=== PATIENT | female | born 1940 | race Caucasian/White ===

== ENCOUNTER → 2020-03-11 08:02 | Outpatient (CLI) | payer OTHER, SELFPAY | PROVIDERS: Family Provider Family Medicine; PCP Family Medicine; Referring Provider Family Medicine; Visit Provider Family Medicine | DX: I60.7 Nontraumatic subarachnoid hemorrhage from unspecified intracranial artery (principal); Z53.8 Procedure and treatment not carried out for other reasons ==

== ENCOUNTER → 2020-03-29 09:44 | Outpatient (CLI) | payer OTHER, SELFPAY ==
--- NOTE | 2020-03-29 | DI.MRI.S_ITS ---
PROCEDURE: MR ANGIO HEAD WO CON INDICATIONS: CEREBRAL ANE TECHNIQUE: Noncontrast axial 3-D [id number] MR angiogram, with 3-dimensional maximum intensity projection (MIP) reformats of the internal carotid arteries and posterior circulation then performed. COMPARISON: [facility], CT, HEAD WITHOUT CONTRAST, 04/12/2016, 8:44. FINDINGS: Image quality: Excellent. Anterior circulation: Intracranial internal carotid arteries demonstrate normal size and intraluminal flow signal. The flow within the paired anterior cerebral arteries is normal and symmetric. The flow within the middle cerebral arteries is normal and symmetric. The anterior communicating artery is seen. 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 Posterior circulation: Visualized portions of the vertebral arteries demonstrate normal caliber, and join to form a normal appearing basilar artery. The flow within the posterior cerebral arteries is normal and symmetric. No stenoses, occlusions, or aneurysms. 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 Dictated by: Clay Blankenship M.D. on 03/29/2020 at 11:20 Approved by: Clay Blankenship M.D. on 03/29/2020 at 11:28
== END ==
PROVIDERS: Family Provider Family Medicine; PCP Family Medicine; Referring Provider Physician Assistant; Visit Provider Physician Assistant
DX: I67.1 Cerebral aneurysm, nonruptured (principal)
CPT/HCPCS: 70544

== ENCOUNTER 2021-02-12 10:19 | Emergency (ER) | payer OTHER, SELFPAY ==
[2021-02-12 10:27] VITALS: BP 163/71; PULSE 62; O2SAT 98
[2021-02-12 10:30] VITALS: PULSE 60; O2SAT 99
[2021-02-12 10:40] VITALS: BP 163/71; PULSE 57; RESP 20; TEMP 36.5; O2SAT 98; BMI 28.7
[2021-02-12 10:46] LABS: Add Manual Diff / Slide Review NO; Basophils Absolute Auto 0 /uL (0-100); Basophils Percent Auto 0.6 % (0-2); Eosinophils Absolute Auto 0 /uL (0-450); Eosinophils Percent Auto 0.6 % (2-4); Hemoglobin 13.7 g/dL (12.0-16.0); Lymphocytes Absolute Auto 1700 /uL (1100-4500); Lymphocytes Percent Auto 26.1 % (25-40); Mean Corpuscular HGB Conc 33.4 % (30-36); Mean Corpuscular Hemoglobin 29.4 PG (26-34); Mean Corpuscular Volume 87.9 fL (80-100); Monocytes Absolute Auto 500 /uL (0-900); Monocytes Percent Auto 7.2 % (3-14); Neutrophils Absolute Auto 4300 /uL (1500-7000); Neutrophils Percent Auto 65.5 % (50-75); Platelet Count 230 X10^3/uL (150-400); Red Blood Cell Count 4.66 X10^6/uL (4.0-5.2); Red Cell Distribution Width 13.8 % (11.6-14.8); White Blood Cell Count 6.6 X10^3/uL (4.5-11.0)
[2021-02-12 11:00] VITALS: PULSE 55; RESP 18; O2SAT 99
[2021-02-12 11:00] LABS: Alanine Aminotransferase 22 IU/L (<35); Albumin 4.4 g/dL (3.5-5.0); Albumin Globulin Ratio 1.5 (1.0-2.8); Alkaline Phosphatase 83 U/L (38-126); Aspartate Aminotransferase 22 IU/L (14-36); BUN Creatinine Ratio 41.9 (6-22); Bilirubin Total 0.4 mg/dL (0.2-1.3); Blood Urea Nitrogen 26 mg/dL (7-17); Calcium 9.6 mg/dL (8.4-10.2); Carbon Dioxide 33 mmol/L (22-32); Chloride 104 mmol/L (98-107); Estimated Glomerular Filt Rate > 60.0 mL/min (>60); Globulin 2.9 g/dL (1.7-4.1); Glucose 106 mg/dL (80-110); HEMOLYSIS < 15 (0-50); Lipase 64 U/L (23-300); Potassium 4.3 mmol/L (3.4-5.1); Sodium 140 mmol/L (137-145); Total Protein 7.3 g/dL (6.3-8.2)
[2021-02-12 11:01] VITALS: BP 138/107; PULSE 56; O2SAT 99
--- NOTE | 2021-02-12 11:05 | ED.GENADULT ---
HPI - General Adult General Chief complaint: Abdominal Pain Stated complaint: Left side abd pain all night Time Seen by Provider: 02/12/21 10:42 Source: patient Mode of arrival: Ambulatory History of Present Illness HPI narrative: Patient is an 80-year-old female who is here for evaluation of left-sided abdominal pain. States that her symptoms started last evening. It was right before she was going to bed. Had a hard time sleeping last night because of the discomfort. No diarrhea. No constipation. No nausea vomiting. No urinary symptoms. She had a bowel movement this morning and also urinated this morning and that did not change her discomfort at all. No fevers. She does have a history of a [employer] shunt but no other abdominal procedures. No blood in her stool. Has not tried anything for symptoms prior to arrival. Related Data Allergies Allergy/AdvReac Type Severity Reaction Status Date / Time bupropion [From WELLBUTRIN] Allergy Severe ANGIOEDEMA Verified 02/12/21 10:49 Sulfa (Sulfonamide Allergy Intermediate SWELLING Verified 02/12/21 10:49 Antibiotics) [SULFA (SULFONAMIDE ANTIBIOTICS)] Review of Systems Constitutional Constitutional: Reports system reviewed and no additional complaints, except as documented Cardiovascular Cardiovascular: Reports as per HPI and Reports system reviewed and no additional complaints, except as documented Respiratory Respiratory: Reports as per HPI and Reports system reviewed and no additional complaints, except as documented Gastrointestinal Gastrointestinal: Reports as per HPI and Reports system reviewed and no additional complaints, except as documented Genitourinary Genitourinary: Reports system reviewed and no additional complaints, except as documented Musculoskeletal Musculoskeletal: Denies back pain Integumentary/Breasts Skin/Breast: Reports system reviewed and no additional complaints, except as documented Neurologic Neurologic: Reports system reviewed and no additional complaints, except as documented Hematologic/Lymphatic On Anticoagulants: No Allergic/Immunologic Allergic/Immunologic: Reports system reviewed and no additional complaints, except as documented Patient History Medical History Atypical chest pain Otitis media, left Pharyngitis Subarachnoid hemorrhage Social History Smoking Status: Never smoker Smoking Status: Never smoker alcohol intake frequency: holidays/special occasions only Substance Use Type: does not use Exam Initial Vital Signs Initial Vital Signs: Vital Signs Pulse Rate 62 02/12/21 10:27 Blood Pressure 163/71 H 10/10/21 10:27 Pulse Oximetry 98 02/12/21 10:27 Const General: cooperative, healthy appearing and comfortable HENMT Head: normal to inspection and normocephalic Resp Effort & Inspection: normal respiratory effort Auscultation: clear to auscultation bilaterally Cardio Rate: regular rate Rhythm: regular rhythm GI Inspection: normal to inspection Palpation: soft, No firm and tender (Left-sided abdomen/lower abdomen) Back/Spine/Pelvis Back: No CVA tenderness Neuro General: patient alert, patient awake, patient oriented x3 and moves all extremities Extrem General: normal to inspection and capillary refill normal Psych Appearance: grossly normal and well kempt Course Orders Ordered: ED Orders 02/12/21 10: EKG-12 Lead Stat 02/12/21 10:35 Complete Blood Count AUTO DIFF Stat Comprehensive Metabolic Panel Stat Lipase Stat 02/12/21 11:05 CT abdomen pelvis w con Stat 02/12/21 11:25 Urine Microscopic Stat Discontinued Medications Sodium Chloride (Normal Saline 0.9%) 1,000 mls @ 1,000 mls/hr IV BOLUS ONE Stop: 02/12/21 12:04 Last Admin: 02/12/21 11:28 Dose: 1,000 mls/hr Documented by: CTRMIKEL Vital Signs Vital signs: Vital Signs - 8 hr 02/12/21 10:27 02/12/21 10:30 02/12/21 10:40 Temperature 97.7 F Pulse Rate 62 60 57 L Respiratory Rate 20 Blood Pressure 163/71 H 163/71 H Pulse Oximetry 98 99 98 02/12/21 11:00 02/12/21 11:01 Temperature Pulse Rate 55 L 56 L Respiratory Rate 18 Blood Pressure 138/107 H Pulse Oximetry 99 99 Medical Decision Making Lab Data Lab results reviewed: Yes I reviewed the patient's lab results. Result diagrams: 02/12/21 10:35 02/12/21 10:35 Labs: Lab Results 02/12/21 02/12/21 02/12/21 Range/Units 10:35 10:35 11:25 WBC 6.6 (4.5-11.0) X10^3/uL RBC 4.66 (4.0-5.2) X10^6/uL Hgb 13.7 (12.0-16.0) g/dL Hct 41.0 (36-46) % MCV 87.9 (80-100) fL MCH 29.4 (26-34) PG MCHC 33.4 (30-36) % RDW 13.8 (11.6-14.8) % Plt Count 230 (150-400) X10^3/uL Neut % (Auto) 65.5 (50-75) % Lymph % (Auto) 26.1 (25-40) % [place] % (Auto) 7.2 (3-14) % Eos % (Auto) 0.6 L (2-4) % Baso % (Auto) 0.6 (0-2) % Neut # (Auto) 4300 (0117-3623) /uL Lymph # (Auto) 1700 (2990-5599) /uL [place] # (Auto) 500 (0-900) /uL Eos # (Auto) 0 (0-450) /uL Baso # (Auto) 0 (0-100) /uL Sodium 140 (137-145) mmol/L Potassium 4.3 (3.4-5.1) mmol/L Chloride 104 (98-107) mmol/L Carbon Dioxide 33 H (22-32) mmol/L BUN 26 H (7-17) mg/dL Creatinine 0.62 (0.52-1.04) mg/dL Estimated GFR > 60.0 (>60) mL/min BUN/Creatinine Ratio 41.9 H (6-22) Glucose 106 (80-110) mg/dL Calcium 9.6 (8.4-10.2) mg/dL Total Bilirubin 0.4 (0.2-1.3) mg/dL AST 22 (14-36) IU/L ALT 22 (<35) IU/L Alkaline Phosphatase 83 (38-126) U/L Total Protein 7.3 (6.3-8.2) g/dL Albumin 4.4 (3.5-5.0) g/dL Globulin 2.9 (1.7-4.1) g/dL Albumin/Globulin Ratio 1.5 (1.0-2.8) Lipase 64 (23-300) U/L Urine RBC None seen (0-5/HPF) Urine WBC 0-1/hpf (0-5/HPF) Ur Squamous Epith Cells 0-1 /hpf (0-5/HPF) Urine Bacteria None seen (None) Ur Culture Indicated? Cult not indicated Urine Dip Bedside Urine Glucose Negative Bedside Urine Bilirubin - Negative Bedside Urine Ketone - Negative Urine Specific [place] 1.010 Bedside Urine Occult Blood + Bedside Urine pH 7.0 Bedside Urine Protein - Negative Bedside Urine Urobilinogen - Negative Bedside Urine Nitrite - Negative Bedside Urine Leukocytes - Negative Esterase Point of care testing: Urine Dip Bedside Urine Glucose Negative Bedside Urine Bilirubin - Negative Bedside Urine Ketone - Negative Urine Specific [place] 1.010 Bedside Urine Occult Blood + Bedside Urine pH 7.0 Bedside Urine Protein - Negative Bedside Urine Urobilinogen - Negative Bedside Urine Nitrite - Negative Bedside Urine Leukocytes - Negative Esterase Imaging Data CT scan - abdomen/pelvis: Radiologist's Impression: [address] [id number] Scan ReportSigned Patient: Zeina Fuentes [facility]#: [id number]: 1940Acct:[id number]/Sex: 80 / FDate of Service: 02/12/21Loc: EDAccession Number: [id number] Procedure: CT abdomen pelvis w con Ordering Provider: Puma Lassiter D.O. PROCEDURE: CT ABDOMEN PELVIS W CON INDICATIONS: Left-sided abdominal pain TECHNIQUE: After the administration of intravenous contrast, axial sections acquired from the lung bases to the pubic symphysis. Coronal and sagittal reformats were performed. For radiation dose reduction, the following was used: automated exposure control, adjustment of mA and/or kV according to patient size. COMPARISON: None. FINDINGS: Image quality: Excellent. Lung bases: Unremarkable. Heart: No significant findings. ABDOMEN: Liver: Scattered calcifications within the right hepatic lobe, consistent with remote granulomatous disease. Gallbladder: Is within normal limits Biliary ducts: Unremarkable. Pancreas: Unremarkable. Spleen: Unremarkable. Adrenal Glands: No right adrenal nodules. Indeterminate left adrenal nodule measuring 18 mm with internal calcifications. Kidneys and Ureters: Bilateral renal cysts, largest of which is in the right interpolar kidney measuring 9 cm transverse. Stomach and Bowel: Stomach, small bowel loops, and colon are unremarkable. Normal appendix. Peritoneum: No abnormal intraperitoneal fluid. No free air. [employer] shunt catheter terminates within the central pelvis. Ventral Wall: No hernias. Abdominal Nodes: No retroperitoneal or mesenteric adenopathy by size criteria. Vessels: Aorta and inferior vena cava are normal in size. PELVIS: Pelvic Organs: Unremarkable. Bladder: Unremarkable. Pelvic Nodes: No enlarged lymph nodes. Miscellaneous: No hernias are seen. Bones: Unremarkable. IMPRESSION: 1. No acute process. 2. Normal appendix. Dictated by: Doug Suarez M.D. on 02/12/2021 at 12:04 Approved by: Doug Suarez M.D. on 02/12/2021 at 12:06 ECG Data Attestation: I personally reviewed and interpreted this ECG as follows: Interpretation: Sinus bradycardia Ventricular rate of 52 Left axis deviation Normal QRS Normal QTC Nonspecific ST T wave changes MDM Narrative Medical decision making narrative: Labs unremarkable, CT scan shows no acute pathology. Urine is unremarkable. No signs of any infection. No indication for surgical consultation. She has no rash over the area that would make a concern for zoster. No further workup needed in the emergency department. She was given return precautions and follow-up instructions. She expressed understanding and agreement. Discharge Plan Departure Patient Disposition: Home Clinical Impression: Abdominal pain Instructions: DI for Abdominal Pain-Adult Activity Restrictions/Additional Instructions: Your labs and CT scan are all very reassuring. Unfortunately we do not have a specific cause of your abdominal pain but it does not appear to be a surgical nor infectious cause. Recommend you contact your primary doctor for a follow-up. Return to the emergency department for any new or worsening symptoms Referrals: Annabelle Ziegler MD [Primary Care Provider] -
[2021-02-12] MEDS: SODIUM CHLORIDE 0.9% 1,000 ML 1000 ML IV (11:28)
[2021-02-12 12:03] LABS: Bacteria Urine None Seen; Culture Indicated Urine Cult Not Indicated; RBC Urine None Seen (0-5/HPF); Squamous Epithelial Cell Urine 0-1 /HPF (0-5/HPF); WBC Urine 0-1/HPF (0-5/HPF)
[2021-02-12 13:04] VITALS: BP 163/90; PULSE 48; RESP 16; O2SAT 100
== END 2021-02-12 13:05 | disposition home or self-care (01) ==
PROVIDERS: Emergency Provider Emergency Medicine; Family Provider Family Medicine; PCP Family Medicine
DX: R10.9 Unspecified abdominal pain (principal)
CPT/HCPCS: 36415; 74177; 80053; 81003; 81015; 83690; 85025; 93005; 99284; Q9967

== ENCOUNTER → 2021-10-17 12:04 | Outpatient (CLI) | payer OTHER, SELFPAY ==
--- NOTE | 2021-10-17 | DI.RAD.S_ITS ---
PROCEDURE: XR THORACIC SPINE 2V INDICATIONS: NECK PAIN TECHNIQUE: 3 views of the thoracic spine were acquired. COMPARISON: None. FINDINGS: Bones: Mild loss of height noted in the T5, T6, T7, T8, T9 and T10 vertebral body. No suspicious bony lesions. 12 pairs of ribs are noted, and appear intact where visualized. Mild convex right curvature of the thoracolumbar spine. Mild degenerative disc changes noted throughout the thoracic spine. Mild facet hypertrophy noted in the mid and lower thoracic spine. Soft tissues: No paravertebral stripe thickening. IMPRESSION: 1. Multilevel degenerative disc disease. 2. Multilevel facet arthropathy. 3. Mild loss of height in the T5-T10 vertebral bodies concerning for mild compression fractures of indeterminate age. If symptoms and/or clinical suspicion for pathology persists, evaluation with MRI should be considered for further assessment. Dictated by: Kayla Luna MD, PhD on 10/17/2021 at 16:44 Approved by: Kayla Luna MD, PhD on 10/17/2021 at 16:46
--- NOTE | 2021-10-17 | DI.RAD.S_ITS ---
PROCEDURE: XR CERVICAL SPINE 2V OR 3V INDICATIONS: NECK PAIN TECHNIQUE: 3 view(s) of the cervical spine were acquired. COMPARISON: None. FINDINGS: Bones: No fractures or dislocations to the T1 level. The lateral masses of C1 appear intact on the odontoid view. No suspicious bony lesions. Severe C5-C6 degenerative disc disease. Mild C2-C3, C3-C4, C4-C5, C6-C7 and C7-T1 degenerative disc disease. Mild facet hypertrophy noted throughout the cervical spine. Soft tissues: No prevertebral soft tissue swelling. Partially visualized [employer] shunt catheter. IMPRESSION: 1. Multilevel degenerative disc disease. 2. Multilevel facet arthropathy. 3. No fracture. No acute osseous lesion. If symptoms and/or clinical suspicion for pathology persists, evaluation with MRI should be considered for further assessment. Dictated by: Kayla Luna MD, PhD on 10/17/2021 at 16:43 Approved by: Kayla Luna MD, PhD on 10/17/2021 at 16:44
== END ==
PROVIDERS: Family Provider Family Medicine; PCP Family Medicine; Referring Provider Family Medicine; Visit Provider Family Medicine
DX: M50.31 Other cervical disc degeneration, high cervical region (principal); M47.812 Spondylosis without myelopathy or radiculopathy, cervical region
CPT/HCPCS: 72040; 72070

== ENCOUNTER → 2022-02-07 13:26 | Outpatient (CLI) | payer OTHER, SELFPAY ==
--- NOTE | 2022-02-07 13:32 | DI.CT.S_ITS ---
PROCEDURE: CT IVP A/P W/WO INDICATIONS: Hematuria, unspecified TECHNIQUE: Optional 5 mm thick noncontrast images acquired from the diaphragm to the symphysis pubis. After the administration of intravenous contrast, 5 mm thick images acquired from the diaphragm to the symphysis pubis after a 10-minute delay. 2 mm thick coronal and sagittal reformats were then performed of the kidneys and ureters. For radiation dose reduction, the following was used: automated exposure control, adjustment of mA and/or kV according to patient size. COMPARISON: [facility], CT, CT ABDOMEN PELVIS W CON, 02/12/2021, 11:43. FINDINGS: Image quality: Excellent. Lung bases: Lung bases are clear. Heart size is normal. Small hiatal hernia. Urinary system: Both kidneys are normal in size, without hydronephrosis or nephrolithiasis on pre-contrast images. No perinephric fat stranding. There is normal bilateral renal enhancement. There is a large bilobed cyst in the mid right kidney measuring 5.6 cm AP and 9.2 cm transverse. Smaller renal cortical cysts are seen bilaterally. No solid renal masses. Renal calyces appear normal in morphology when filled with contrast. Opacified portions of both ureters demonstrate normal caliber. Bladder wall thickness is normal. No calcified bladder stones. Other solid organs: Liver is normal in size and enhancement. Mild hepatic steatosis. Calcified nodules in liver and spleen are compatible with old granulomas. Spleen is normal in size. Gallbladder is normal. Biliary system is non dilated. Pancreas enhances normally. There is a 1.9 cm left adrenal nodule with CT attenuation compatible with a benign adrenal adenoma. Right adrenal is normal. 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 Bowel loops demonstrate normal wall thickness and caliber. Diverticulosis without acute diverticulitis. Normal appendix. No free fluid or air. Nodes and vessels: No retroperitoneal or mesenteric adenopathy by size criteria. Aorta and inferior vena cava are normal in size. There is [id number] atherosclerosis. Abdominal wall: No ventral hernias. Pelvis: Uterus is normal. No adnexal mass. No pathologic free pelvic fluid. No inguinal hernias or adenopathy. Bones: No suspicious bony lesions. No vertebral body compression fractures. Grade 1 anterolisthesis of L4 on L5. Possible pars defect of L4. Severe degenerative disc disease at L4-L5. IMPRESSION: 1. A cause for microhematuria is not identified on CT. 2. Multiple renal cysts. The largest cyst is seen in the mid right kidney measuring 5.6 x 9.2 cm. No solid renal masses. 3. Diverticulosis without diverticulitis. 4. A 1.9 cm left adrenal adenoma. 5. Calcified granulomas in liver and spleen. 6. 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 Dictated by: Heather Batista M.D. on 02/07/2022 at 16:27 Approved by: Heather Batista M.D. on 02/07/2022 at 16:40
[2022-02-07 14:01] LABS: BUN Creatinine Ratio 31.4 (6-22); Blood Urea Nitrogen 22 mg/dL (7-17); Calcium 9.2 mg/dL (8.4-10.2); Carbon Dioxide 35 mmol/L (22-32); Chloride 101 mmol/L (98-107); Estimated Glomerular Filt Rate > 60 mL/min (>60); Glucose 107 mg/dL (80-110); HEMOLYSIS < 15 (0-50); Potassium 3.9 mmol/L (3.4-5.1); Sodium 142 mmol/L (137-145)
== END ==
PROVIDERS: Family Provider Family Medicine; PCP Family Medicine; Referring Provider Urology; Visit Provider Urology
DX: N28.1 Cyst of kidney, acquired (principal); R31.9 Hematuria, unspecified; K57.90 Diverticulosis of intestine, part unspecified, without perforation or abscess without bleeding; D35.02 Benign neoplasm of left adrenal gland; Z95.828 Presence of other vascular implants and grafts; D73.89 Other diseases of spleen; K76.89 Other specified diseases of liver
CPT/HCPCS: 36415; 74178; 80048; Q9967

== ENCOUNTER → 2022-09-11 14:05 | Outpatient (CLI) | payer OTHER, SELFPAY | PROVIDERS: Family Provider Family Medicine; PCP Family Medicine; Visit Provider Urology | DX: R31.21 Asymptomatic microscopic hematuria (principal); R82.81 Pyuria; Z87.891 Personal history of nicotine dependence; Z98.2 Presence of cerebrospinal fluid drainage device | CPT/HCPCS: 81002; 87086; 99213 ==

== ENCOUNTER → 2022-10-10 10:54 | Outpatient (CLI) | payer OTHER, SELFPAY ==
--- NOTE | 2022-10-10 | DI.CT.S_ITS ---
PROCEDURE: CT CERVICAL SPINE WO CON INDICATIONS: Spondylosis cervical region TECHNIQUE: Noncontrast 3 mm thick sections acquired from the skull base to the T4 level. Sagittal and coronal reformats were then constructed. For radiation dose reduction, the following was used: automated exposure control, adjustment of mA and/or kV according to patient size. COMPARISON: [facility], CT, CT IVP A/P W/WO, 02/07/2022, 14:14. [facility], CR, XR CERVICAL SPINE 2V OR 3V, 10/17/2021, 12:12. FINDINGS: Image quality: Excellent. Bones: No acute fractures or dislocations. There is trace 1 mm grade 1 anterolisthesis at C2-3, C3-4, and C4-5. Multilevel disc space narrowing degenerative endplate changes are most prominent at the C5-6 disc space level. There is multilevel uncovertebral joint and facet hypertrophy. Spinal canal contents and neural foramina are better evaluated on the dedicated cervical spine MRI performed on the same day. Visualized superior ribs are intact. Mild scoliotic curvature of the included upper thoracic spine. Soft tissues: Prevertebral soft tissues are normal in thickness. No paravertebral hematomas. No apical pneumothoraces. A ventriculoperitoneal shunt catheter is partially imaged and appears intact. Subcentimeter thyroid nodules do not require dedicated imaging follow-up. IMPRESSION: No acute osseous abnormality. Moderate multilevel spondylosis. Approved by: Keshav Serrano M.D. on 10/10/2022 at 14:10
--- NOTE | 2022-10-10 11:06 | DI.MRI.S_ITS ---
PROCEDURE: MR CERVICAL SPINE WO CON INDICATIONS: Spondylosis cervical region TECHNIQUE: Noncontrast sagittal T1 spin echo and T2 fast spin echo, sagittal STIR, foraminal oblique sagittal T2 fast spin echo, and axial gradient echo or T2 fast spin echo through the cervical spine. COMPARISON: None. FINDINGS: Image quality: Excellent. Alignment and Curvature: There is mild straightening of normal cervical lordosis. Bone Marrow: Marrow demonstrates normal overall signal. Spinal Cord: Visualized spinal cord has normal size and signal. No cerebellar tonsillar herniation. Paraspinous Soft Tissues: No paravertebral masses. Prevertebral soft tissues are normal in thickness. C2-C3: Right lateral disc bulge is seen. No significant canal stenosis or neural foraminal narrowing. C3-C4: Loss of disc signal and disc height. Diffuse disc bulge and bilateral facet hypertrophic changes are noted. There is mild effacement of thecal sac anteriorly and mild left-sided neural foraminal narrowing. C4-C5: Loss of disc signal and disc height is seen. Broad-based disc bulge and bilateral facet hypertrophic changes are seen causing moderate central canal stenosis and left worse than right bilateral neural foraminal narrowing. C5-C6: There is loss of disc height and disc signal. Diffuse disc bulge and bilateral facet hypertrophic changes are seen causing moderate central canal stenosis and right worse than left bilateral neural foraminal narrowing. C6-C7: There is loss of disc height and disc signal. Mild broad-based disc bulge and bilateral facet hypertrophic changes are seen. Mild central canal stenosis and mild left-sided neural foraminal narrowing is noted. C7-T1: Normal appearance. IMPRESSION: 1. No marrow edema. No fracture or dislocation. No abnormal cervical spinal cord signal. 2. Degenerative disc disease throughout cervical spine causing various degrees of central canal stenosis and bilateral neural foraminal narrowing as described above. Dictated by: David Odell M.D. on 10/10/2022 at 12:20 Approved by: David Odell M.D. on 10/10/2022 at 12:30
== END ==
PROVIDERS: Family Provider Family Medicine; PCP Family Medicine; Referring Provider Orthopaedic Surgery Orthopaedic Surgery of the Spine; Visit Provider Orthopaedic Surgery Orthopaedic Surgery of the Spine
DX: M47.812 Spondylosis without myelopathy or radiculopathy, cervical region (principal); M50.31 Other cervical disc degeneration, high cervical region; M48.02 Spinal stenosis, cervical region
CPT/HCPCS: 72125; 72141

== ENCOUNTER → 2023-06-11 15:21 | Outpatient (CLI) | payer OTHER, SELFPAY ==
--- NOTE | 2023-06-11 15:23 | DI.US.S_ITS ---
PROCEDURE: US PERIPH VENOUS LOW EXTREM RT INDICATIONS: RIGHT LEG PAIN / RULE OUT DVT TECHNIQUE: Real-time imaging, as well as color and pulse Doppler interrogation, were performed of the lower extremity deep veins from the inguinal ligament to the popliteal fossa, with documentation of the visualized calf veins. COMPARISON: None. FINDINGS: The common femoral, femoral, popliteal, and the visualized calf veins are normally compressible, and free of intraluminal thrombus. Color and pulse Doppler demonstrate normal phasic intraluminal flow. There is normal augmentation response to distal compression maneuver. IMPRESSION: No findings of lower extremity deep venous thrombosis. Dictated by: Sophie French M.D. on 06/11/2023 at 17:24 Approved by: Sophie French M.D. on 06/11/2023 at 17:24
== END ==
PROVIDERS: Family Provider Family Medicine; PCP Family Medicine; Referring Provider Family Medicine; Visit Provider Family Medicine
DX: M79.604 Pain in right leg (principal)
CPT/HCPCS: 93971

== ENCOUNTER → 2023-11-05 14:59 | Outpatient (CLI) | payer OTHER, SELFPAY ==
--- NOTE | 2023-11-05 15:11 | DI.RAD.S_ITS ---
PROCEDURE: XR LUMBAR SPINE 2-3V INDICATIONS: SRTAIN OF RT HAMSTRING TECHNIQUE: 3 views of the lumbar spine were acquired. COMPARISON: [facility], CT, CT ABDOMEN PELVIS W CON, 02/12/2021, 11:43. FINDINGS: Bones: 5 [id number] vertebrae are present. There is grade 1 anterolisthesis measuring 0.9 cm of L4 on L5. Multilevel moderate to severe degenerative disc space narrowing. Moderate to severe foraminal narrowing is present L4-5, L5-S1. No vertebral body compression fractures. No suspicious bony lesions. Soft tissues: Overlying bowel gas pattern is normal. No suspicious soft tissue calcifications. IMPRESSION: Multilevel degenerative changes most severe at L4-5, L5-S1. Dictated by: Sophie French M.D. on 11/05/2023 at 16:28 Approved by: Sophie French M.D. on 11/05/2023 at 16:30
== END ==
PROVIDERS: Family Provider Family Medicine; PCP Family Medicine; Referring Provider Family Medicine; Visit Provider Family Medicine
DX: S76.311D Strain of muscle, fascia and tendon of the posterior muscle group at thigh level, right thigh, subsequent encounter (principal); M43.16 Spondylolisthesis, lumbar region; M48.061 Spinal stenosis, lumbar region without neurogenic claudication; M48.07 Spinal stenosis, lumbosacral region; X58.XXXD Exposure to other specified factors, subsequent encounter
CPT/HCPCS: 72100

== ENCOUNTER → 2024-01-10 15:31 | Outpatient (CLI) | payer OTHER, SELFPAY ==
--- NOTE | 2024-01-10 15:35 | DI.RAD.S_ITS ---
PROCEDURE: XR LUMBAR SPINE 2-3V INDICATIONS: Sacrococcygeal disorders, not elsewhere classified TECHNIQUE: 3 views of the lumbar spine were acquired. COMPARISON: [facility], , XR LUMBAR SPINE 2-3V, 11/05/2023, 15:12. FINDINGS: Bones: Mild dextroscoliosis of the lumbar spine, progressed from prior exam. Straightening of the lumbar spine. Grade 1 anterolisthesis of L4 on L5, unchanged from prior exam. Vertebral body heights are well-maintained. Multilevel degenerative disc disease of the lumbar spine, most pronounced and severe at L4-5, unchanged. Moderate lower lumbar facet arthropathy. Extensive atherosclerotic calcification abdominal aorta. A tube projects over the right hemiabdomen. IMPRESSION: Degenerative changes as described above. Dictated by: Skye Garcia M.D. on 01/10/2024 at 18:13 Approved by: Skye Garcia M.D. on 01/10/2024 at 18:14
== END ==
PROVIDERS: Family Provider Family Medicine; PCP Family Medicine; Referring Provider Nurse Practitioner Family; Visit Provider Nurse Practitioner Family
DX: M53.3 Sacrococcygeal disorders, not elsewhere classified (principal); W18.30XA Fall on same level, unspecified, initial encounter; M43.16 Spondylolisthesis, lumbar region; M51.36 Other intervertebral disc degeneration, lumbar region; M47.816 Spondylosis without myelopathy or radiculopathy, lumbar region; M54.50 Low back pain, unspecified
CPT/HCPCS: 72100

== ENCOUNTER → 2024-03-19 09:08 | Outpatient (CLI) | payer OTHER, SELFPAY ==
--- NOTE | 2024-03-19 09:09 | DI.ECHO.S_ITS ---
[place] [facility] : : [address] : : [place] : : [id number] : : Phone: [phone] Echocardiogram Report + + :Name: ALFREDO DUNCAN Study Date: 03/19/2024 Height: 66 in : :[facility] ReadingLocation: Weight: 171 lb : : Gender: Female BSA: 1.9 m2 : :: 1940 Age: 83 yrs BP: 136/70 mmHg: :Reason For Study: CHRONIC ISCHEMIC HEART DISEASE : :Ordering Physician: JIMENEZ, : :KERI MONTILLA Performed By: Carrie Mcbride : :Referring: CHAPITO GAONA : + + Interpretation Summary Normal left ventricle size with ejection fraction 60-65%. The left atrium is mildly dilated. The aortic valve is slightly calcified. Mild mitral annular calcification. Comparison is made with the echocardiogram of 08/19/2018, no significant change. Procedure: A two-dimensional transthoracic echocardiogram with color flow and Doppler was performed. The study quality was technically adequate. Comparison is made with the echocardiogram of 08/19/2018. The patient was in sinus bradycardia with heart rates between 45-52 bpm during the exam. Left Ventricle: The left ventricle is normal in size and wall thickness. The ejection fraction is estimated to be 60-65%. There are no other obvious focal wall motion abnormalities. Diastolic parameters suggest a pseudonormalization pattern, consistent with probable elevated filling pressures. Right Ventricle: The right ventricle is normal size. Right ventricular systolic function is borderline reduced. Atria: The left atrium is mildly dilated. Right atrial size is normal. There is no Doppler evidence for an interatrial shunt. Mitral Valve: The mitral valve leaflets appear mildly thickened, but open well. There is mild mitral annular calcification. There is trace mitral regurgitation. Aortic Valve: The aortic valve is trileaflet. The aortic valve opens well. The aortic valve is slightly calcified. There is no aortic valve stenosis. No aortic regurgitation is present. Tricuspid Valve: The tricuspid valve is normal in structure and function. There is a trace or physiologic amount of tricuspid regurgitation. Pulmonary artery pressures cannot be estimated because of the lack of a measurable TR jet velocity. Pulmonic Valve: The pulmonic valve leaflets are thin and pliable; valve motion is normal. There is trace pulmonic regurgitation. Great Vessels: The aortic root is normal size. The dimensions of the ascending aorta are normal. The IVC is of normal diameter and collapses greater than 50% with a sniff. This suggests a low right atrial pressure of 3 mm Hg. Pericardium/ Pleura There is no pericardial effusion. There is no pleural effusion. MMode/2D Measurements & Calculations LVIDd: 4.2 cm LVOT diam: 1.9 cm LVIDs: 2.6 cm Ao root diam: 3.1 cm FS: 38.1 % asc Aorta Diam: 3.3 cm EPSS: 0.36 cm Ao Arch Diam (Prox Trans): 2.6 cm IVSd: 0.84 cm LVPWd: 0.74 cm LV cummings. diameter/BSA (cm/m^2): 2.3 LV sys. diameter/BSA (cm/m^2): 1.4 LA A2 area: 24.1 cm2 RA long axis: 5.1 cm LA A4 area: 20.7 cm2 RA area: 13.6 cm2 LA length (vol): 6.1 cm RA vol: 30.6 ml LA vol: 69.0 ml RA : 16.3 ml/m2 LA vol index: 36.9 ml/m2 IVC diam: 2.0 cm RVD1 (basal): 2.6 cm RVD2 (mid): 2.7 cm TAPSE: 1.5 cm Doppler Measurements & Calculations Ao V2 max: 148.5 cm/sec LVOT Max Yrn: 124.2 cm/sec Ao V2 mean: 113.4 cm/sec LV V1 max P.2 mmHg Ao max P.8 mmHg LV V1 VTI: 32.5 cm Ao mean P.4 mmHg CHEY(I,D): 2.2 cm2 Ao V2 VTI: 39.3 cm CHEY(V,D): 2.3 cm2 sev ratio: 0.83 CHEY indexed to BSA (cm^2/m^2): 1.2 MV E max yrn: 106.5 cm/sec PA V2 max: 96.1 cm/sec MV A max yrn: 94.6 cm/sec PA V2 mean: 69.7 cm/sec MV E/A: 1.1 PA mean P.2 mmHg Med Peak E' Yrn: 7.2 cm/sec PA pr(Accel): 41.3 mmHg E/E' med: 14.8 Lat Peak E' Yrn: 10.0 cm/sec E/E' lat: 10.7 E/e' average: 12.7 MV dec time: 0.27 sec SV(LVOT): 88.3 ml Electronically signed by: Mika Carvalho on Reading Physician:03/19/2024 04:41 PM
== END ==
PROVIDERS: Family Provider Family Medicine; PCP Family Medicine; Referring Provider Nurse Practitioner Family; Visit Provider Nurse Practitioner Family
DX: I34.81 Nonrheumatic mitral (valve) annulus calcification (principal); I25.9 Chronic ischemic heart disease, unspecified; R00.1 Bradycardia, unspecified
CPT/HCPCS: 93306

== ENCOUNTER → 2024-09-10 15:11 | Outpatient (CLI) | payer OTHER, SELFPAY ==
--- NOTE | 2024-09-10 15:15 | DI.MRI.S_ITS ---
PROCEDURE: MR LUMBAR SPINE WO CON INDICATIONS: LUMBAGO W SCIATICA, RIGHT SIDE TECHNIQUE: Noncontrast sagittal T1 spin echo and T2 fast echo, sagittal STIR, and T2 fast spin echo through the lumbar spine. In cases with scoliosis, additional coronal T2 fast spin echo may be performed. COMPARISON: None. FINDINGS: Image quality: Excellent. Alignment and Curvature: There is 7 mm anterolisthesis of L4 on L5. Bone Marrow: Marrow is of normal overall signal. No acute vertebral body compression fractures. Spinal Cord: Conus medullaris terminates at the L1 level. Visualized cord demonstrates normal signal and size. Paraspinous Soft Tissues: No paravertebral masses. Likely right peripelvic and cortical renal cysts are seen. No hydronephrosis. T12-L1: There is disc desiccation. No significant disc bulge, canal stenosis or neural foraminal narrowing. L1-L2: There is disc desiccation. Mild diffuse disc bulge and bilateral facet arthrosis is seen. No significant canal stenosis or neural foraminal narrowing. L2-L3: There is disc desiccation. Broad-based, more left-sided disc herniation and bilateral facet arthrosis with hypertrophy of ligamentum flavum causing mild central canal stenosis and [id number] left-sided neural foraminal narrowing. L3-L4: There is disc desiccation. Diffuse disc bulge and bilateral facet arthrosis causing mild central canal stenosis and mild bilateral neural foraminal narrowing. L4-L5: Loss of disc height and disc desiccation. Broad-based disc bulge and bilateral facet arthrosis with hypertrophy of ligamentum flavum causing severe central canal stenosis and bilateral neural foraminal narrowing. Bulging disc likely contacting bilateral L4 nerve roots. L5-S1: There is disc desiccation and loss of disc height. Central to right-sided disc herniation and bilateral facet arthrosis causing moderate to severe central canal stenosis, severe narrowing of right neural recess and right neural foramen and [id number] left-sided neural foraminal narrowing. There is likely compression of right L5 and S1 nerve roots. IMPRESSION: 1. 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 2. No marrow edema. No acute compression fracture. 7 mm anterolisthesis of L4 on L5. 3. No gross paraspinous soft tissue abnormalities. Dictated by: David Odell M.D. on 09/10/2024 at 20:30 Approved by: David Odell M.D. on 09/10/2024 at 20:33
== END ==
LOC: MRI 15:15
PROVIDERS: Family Provider Family Medicine; PCP Family Medicine; Referring Provider Family Medicine; Visit Provider Family Medicine
DX: M54.41 Lumbago with sciatica, right side (principal); M47.816 Spondylosis without myelopathy or radiculopathy, lumbar region; M47.817 Spondylosis without myelopathy or radiculopathy, lumbosacral region; M48.061 Spinal stenosis, lumbar region without neurogenic claudication; M48.07 Spinal stenosis, lumbosacral region; M43.16 Spondylolisthesis, lumbar region
CPT/HCPCS: 72148

== ENCOUNTER → 2025-03-08 10:36 | Outpatient (CLI) | payer OTHER, SELFPAY ==
--- NOTE | 2025-03-08 11:22 | DI.RAD.S_ITS ---
PROCEDURE: XR DEXA AXIAL SKELETON INDICATIONS: SCREENING COMPARISON: None. FINDINGS: Lumbar Spine: Bone mineral density 0.812 g/cm2, T score -2.1. Left Femoral Neck: Bone mineral density 0.495 g/cm2, T score -3.2. Left Hip: Bone mineral density 0.707 g/cm2, T score -1.9. Fracture Risk Calculation (when applicable): 10-year fracture risk of a major osteoporotic fracture 23 percent and of a hip fracture 9.2 percent. (T score greater or equal to -1.0 to: NORMAL) (T score from -1.1 to -2.4: OSTEOPENIA) (T score less than or equal to -2.5: OSTEOPOROSIS) IMPRESSION: Osteoporosis--- recommend repeat DEXA in 2 years or less for reassessment of response to treatment. Follow-up guidelines as follows: Osteoporosis: Consider a repeat DEXA and Vertebral Fracture Assessment (VFA) exam in 2 years or sooner if medically necessary, to reassess this patient's status. Osteopenia: Consider a repeat DEXA in 2-3 years to reassess this patient's status, or if there is a new clinical indication. Normal: Consider a repeat DEXA in 5 years or sooner, or if there is a new clinical indication. All treatment decisions require clinical judgment and consideration of individual patient factors, including patient preferences, comorbidities, previous drug use, risk factors not captured in the FRAX model (e.g., frailty, falls, vitamin D deficiency, increased bone turnover, interval significant decline in bone density ) and possible under- or over-estimation of fracture risk by FRAX. In addition, the NOF Guide recommends that FDA-approved medical therapies be considered in postmenopausal women and men age >= 50 years with a: * Hip or vertebral (clinical or morphometric) fracture * T-score of <=-2.5 at the spine or hip * Ten-year fracture probability by FRAX of >= 3% for hip fracture or >=20% for major osteoporotic fracture. Dictated by: Segundo Puentes M.D. on 03/08/2025 at 20:01 Approved by: Segundo Puentes M.D. on 03/08/2025 at 20:03
== END ==
PROVIDERS: Family Provider Family Medicine; PCP Family Medicine; Referring Provider Orthopaedic Surgery Orthopaedic Surgery of the Spine; Visit Provider Orthopaedic Surgery Orthopaedic Surgery of the Spine
DX: M81.0 Age-related osteoporosis without current pathological fracture (principal); M43.16 Spondylolisthesis, lumbar region
CPT/HCPCS: 77080